=== PATIENT | male | born 1995 | race Caucasian/White ===

== ENCOUNTER 2017-12-09 10:48 | Inpatient (IN) | payer OTHER ==
[~2017-12-09] VITALS: Ht 177.8 cm; Wt 79.7 kg
[2017-12-09 11:14] LABS: BASOPHIL (%) 0.4 % (0-1); EOSINOPHIL (%) 1.8 % (0-5); EOSINOPHIL COUNT 0.2 K/uL (0-0.3); HEMATOCRIT 46.7 % (38.0-50.0); IMMATURE GRANULOCYTE (%) 0.3 % (0.0-0.7); LYMPHOCYTE (%) 14.1 % (15-42); LYMPHOCYTE COUNT 1.3 K/uL (1.0-2.8); MCH 31.5 PG (29.0-34.0); MCHC 36.4 G/DL (30.0-36.0); MCV 86.6 FL (86-99); MONOCYTE (%) 7.1 % (3-12); MONOCYTE COUNT 0.6 K/uL (0-0.8); NEUTROPHIL (%) 76.3 % (45-76); NEUTROPHIL COUNT 6.8 K/uL (1.8-6.4); PLATELET COUNT 260 K/uL (156-360); RBC DIS.WIDTH-CV 11.8 % (11.8-14.6); RBC DIS.WIDTH-SD 37.3 % (39-53); RED BLOOD COUNT 5.39 M/uL (4.00-5.50); WHITE BLOOD COUNT 8.9 K/uL (4.1-10.2)
[2017-12-09 11:22] LABS: AMYLASE 32 IU/L (1-118); CHLORIDE 104 mEq/L (99-109); POTASSIUM 3.4 mEq/L (3.7-5.4); SODIUM 140 mEq/L (136-147)
[2017-12-09 11:24] LABS: GLUCOSE 114 mg/dL (70-99)
[2017-12-09 11:27] LABS: SERUM ETHYL ALCOHOL < 10 mg/dL
[2017-12-09 11:28] LABS: CREATININE 1.1 mg/dL (0.6-1.3)
[2017-12-09 11:29] LABS: UREA NITROGEN (BUN) 13 mg/dL (9-23)
[2017-12-09 11:30] LABS: GFR ESTIMATE (CALCULATED) > 59 mL/min/ (58.99-99999)
[2017-12-09 11:31] LABS: LIPASE 23 U/L (1.0-51.0)
[2017-12-09 15:21] VITALS: BP 145/68
[2017-12-09 19:57] VITALS: BP 114/54
[2017-12-10 00:18] VITALS: BP 116/55
[2017-12-10 03:49] VITALS: BP 105/51
[2017-12-10 06:50] LABS: BILIRUBIN NEGATIVE; BLOOD NEGATIVE; COLOR YELLOW ((YELLOW)); GLUCOSE (STRIP) NEGATIVE; KETONES NEGATIVE; LEUKOCYTES NEGATIVE; NITRITE NEGATIVE; PROTEIN (STRIP) 30
[2017-12-10 06:55] LABS: APPEARANCE CLEAR ((CLEAR)); UCUL ADDED? NO
[2017-12-10 07:36] LABS: BENZODIAZEPINES, URINE SCREEN Negative (200 ng/mL)
[2017-12-10 08:37] VITALS: BP 125/60
== END 2017-12-10 13:48 | disposition home or self-care (01) | DRG 87 ==
LOC: TRA 10:48 → EDOF 13:18 → ENRESERV 13:37 → EDOF 14:24 → 3EAST 14:59
PROVIDERS: Emergency Medicine
DX: S06.5X1A Traumatic subdural hemorrhage with loss of consciousness of 30 minutes or less, initial encounter (principal); S06.6X1A Traumatic subarachnoid hemorrhage with loss of consciousness of 30 minutes or less, initial encounter; H53.2 Diplopia; W17.89XA Other fall from one level to another, initial encounter; Y93.23 Activity, snow (alpine) (downhill) skiing, snowboarding, sledding, tobogganing and snow tubing; V00.311A Fall from snowboard, initial encounter
CPT/HCPCS: 70450; 71045; 72125; 72170; 80048; 80306 90; 81003; 82150; 83690; 85025; 86850; 86900; 86901; 99281; 99285; G0480; J7030